=== PATIENT | female | born 2000 | race Two or more races ===

== ENCOUNTER 2024-01-22 10:21 | Emergency (ER) | payer MEDICAID ==
[2024-01-22] MEDS: Ketorolac 60 MG/2 ML SDV IM ONE (10:52)
== END 2024-01-22 11:32 | disposition home or self-care (01) ==
LOC: MW.ED 10:21 → EDSEX 10:21 → MW.ED 11:32
DX: M25.521 Pain in right elbow (principal)
CPT/HCPCS: 73080; 96372; 99283; J1885

== ENCOUNTER 2024-05-22 05:53 | Emergency (ER) | payer MEDICAID | END 2024-05-22 07:28 | disposition home or self-care (01) | LOC: MW.ED 05:53 | DX: J01.00 Acute maxillary sinusitis, unspecified (principal) | CPT/HCPCS: 87428-QW; 99283 ==

== ENCOUNTER → 2024-08-19 | Emergency (ER) | payer SELFPAY | END | disposition home or self-care (01) | LOC: MW.ED 11:17 | DX: S96.912A Strain of unspecified muscle and tendon at ankle and foot level, left foot, initial encounter (principal); W19.XXXA Unspecified fall, initial encounter | CPT/HCPCS: 73610-26-LT; 73610-LT; 99283 ==